=== PATIENT | male | born 1960 | race Caucasian/White ===

== ENCOUNTER 2017-02-04 00:20 | Emergency (ER) | payer SELFPAY ==
[~2017-02-04] VITALS: Ht 170.2 cm; Wt 63.5 kg
[2017-02-04 00:24] VITALS: BP 119/78; PULSE 93; RESP 20; TEMP 98.3; O2SAT 97
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
[2017-02-04 02:00] VITALS: BP 113/67; PULSE 83; RESP 16; O2SAT 96
== END 2017-02-04 05:16 | disposition home or self-care (01) ==
LOC: NEPE 00:20
DX: R25.8 Other abnormal involuntary movements (principal); F12.10 Cannabis abuse, uncomplicated
CPT/HCPCS: 99283

== ENCOUNTER 2017-03-30 11:21 | Emergency (ER) | payer SELFPAY ==
[~2017-03-30] VITALS: Ht 170.2 cm; Wt 63.5 kg
[2017-03-30 11:23] VITALS: BP 159/100; PULSE 70; RESP 16; TEMP 98.6; O2SAT 100
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
[2017-03-30] MEDS ORDERED: DICL75TA PO (12:54)
[2017-03-30] MEDS ORDERED: TRAM50TA PO (12:54)
[2017-03-30] MEDS ORDERED: ZOFR4TAB3 SL (12:54)
[2017-03-30] MEDS ORDERED: IBUPROFEN 800 MG TAB PO ONE (13:00)
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
== END 2017-03-30 13:48 | disposition home or self-care (01) ==
LOC: NEPK 11:21
DX: M70.30 Other bursitis of elbow, unspecified elbow (principal)
CPT/HCPCS: 73080; 99283